=== PATIENT | female | born 1960 | race Caucasian/White ===

== ENCOUNTER 2018-06-14 09:29 | Emergency (ER) | payer OTHER ==
[~2018-06-14] VITALS: Wt 78.0 kg
[~2018-06-14 09:29] MED LIST: CYCL10TA7 PO; IBUP-1542 PO; LORA-441 PO
[2018-06-14 09:33] VITALS: BP 140/78; PULSE 80; RESP 18
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
[2018-06-14] MEDS ORDERED: KETOROLAC 15 MG INJ IM STA (10:28)
[2018-06-14] MEDS ORDERED: NITR-58 PO (11:11)
[2018-06-14] MEDS ORDERED: IBUP-1561 PO (11:11)
[2018-06-14] MEDS ORDERED: ACET325T33 PO (11:11)
== END 2018-06-14 11:39 | disposition left against medical advice (07) ==
LOC: FTE 09:29
DX: N39.0 Urinary tract infection, site not specified (principal); Z87.891 Personal history of nicotine dependence
CPT/HCPCS: 81003; 96372; 99284; J1885